=== PATIENT | female | born 1955 | race Caucasian/White ===

== ENCOUNTER 2018-11-21 05:40 | Day surgery (SDC) | payer MEDICAID ==
[2018-11-20 10:17] LABS: BASOPHILS # (AUTO) 0.1 X10'3 (0-0.2); BASOPHILS % (AUTO) 0.6 % (0-1); EOSINOPHILS # (AUTO) 0.2 X10'3 (0-0.9); EOSINOPHILS % (AUTO) 2.5 % (0-6); HEMATOCRIT 36.4 % (35.0-45.0); HEMOGLOBIN 12.2 g/dl (12.0-16.0); LYMPHOCYTES # (AUTO) 2.1 X10'3 (1.1-4.8); LYMPHOCYTES % (AUTO) 26.4 % (21-51); MEAN CORPUSCULAR HEMOGLOBIN 29.6 PG (27.0-31.0); MEAN CORPUSCULAR HGB CONC 33.6 g/dL (33.0-36.5); MEAN CORPUSCULAR VOLUME 88.2 FL (78-98); MEAN PLATELET VOLUME 7.8 FL (7.4-10.4); MONOCYTES # (AUTO) 0.8 X10'3 (0-0.9); MONOCYTES % (AUTO) 10.2 % (2-12); NEUTROPHILS # (AUTO) 4.9 X10'3 (1.8-7.7); NEUTROPHILS % (AUTO) 60.3 % (42-75); PLATELET COUNT 368 X10'3 (140-440); RED BLOOD COUNT 4.13 X10'6 (4.20-5.60); RED CELL DISTRIBUTION WIDTH 14.5 % (11.5-14.5); WHITE BLOOD COUNT 8.1 X10'3 (4.5-11.0)
[2018-11-20 10:37] LABS: ALANINE AMINOTRANSFERASE 23 U/L (12-78); ALBUMIN 3.2 G/DL (3.4-5.0); ALBUMIN/GLOBULIN RATIO 0.7 (1.1-1.5); ALKALINE PHOSPHATASE 75 IU/L (46-116); ANION GAP 9 (8-16); ASPARTATE AMINO TRANSFERASE 13 U/L (10-37); BILIRUBIN,TOTAL 0.3 MG/DL (0.1-1.0); BLOOD UREA NITROGEN 22 MG/DL (7-18); BUN/CREATININE RATIO 21.8 (6.6-38.0); CALCIUM 9.6 MG/DL (8.5-10.1); CHLORIDE 104 MMOL/L (99-107); CREATININE 1.01 MG/DL (0.40-0.90); GLUCOSE 124 MG/DL (70-104); POTASSIUM 3.1 MMOL/L (3.5-5.1); SODIUM 143 MMOL/L (135-145); TOTAL CARBON DIOXIDE 30.5 MMOL/L (24-32); TOTAL PROTEIN 7.5 G/DL (6.4-8.2); eGFR 55 ML/MIN
[2018-11-20 10:40] LABS: PARTIAL THROMBOPLASTIN TIME 28 SECONDS (22-32)
[~2018-11-21] VITALS: Ht 167.6 cm; Wt 89.8 kg
[2018-11-21] VITALS (16 sets, daily range): BP systolic 91–125; BP diastolic 54–96
[2018-11-21] MEDS ORDERED: nitroGLYCERIN 0.4mg SUBLingual tab SL PRN (06:10)
[2018-11-21] MEDS ORDERED: LORazepam 0.5 MG tablet PO PRN (06:10)
[2018-11-21] MEDS ORDERED: MESSAGE TO PHARMACY PO ONE (06:10)
[2018-11-21] MEDS ORDERED: dextrose 50%-water 50ml dispensing syringe IV PRN ×2 (06:10)
[2018-11-21] MEDS ORDERED: insulin Lispro (HumaLOG) vial - multi-dose SQ SCH (06:10)
[2018-11-21] MEDS ORDERED: diphenhydrAMINE 25mg capsule PO PRN (06:10)
[2018-11-21] MEDS ORDERED: glucagon, human recombinant 1mg kit SUBCUT PRN (06:10)
[2018-11-21] MEDS ORDERED: normal saline 1,000 ML IV SCH (06:10)
[2018-11-21] MEDS ORDERED: dextrose ORAL solution 15 GM/59 ML bottle PO PRN ×2 (06:10)
[2018-11-21] MEDS ORDERED: OMEP40CA13 PO (06:30)
[2018-11-21] MEDS ORDERED: METF-438 PO (06:30)
[2018-11-21] MEDS ORDERED: CINNAMON PO (06:30)
[2018-11-21] MEDS ORDERED: FLAX SEED OIL PO (06:30)
[2018-11-21] MEDS ORDERED: OMEG-15 PO (06:30)
[2018-11-21] MEDS ORDERED: TRIA1CAP6 PO (06:30)
[2018-11-21] MEDS ORDERED: ASPI-611 PO (06:30)
[2018-11-21] MEDS ORDERED: GLIP2.5T3 PO (06:30)
[2018-11-21] MEDS ORDERED: FENUGREEK PO (06:30)
[2018-11-21] MEDS ORDERED: BENADRYL (06:30)
[2018-11-21] MEDS ORDERED: MULT-1085 PO (06:30)
[2018-11-21] MEDS ORDERED: GRAPE SEED PO (06:30)
[2018-11-21] MEDS ORDERED: CAL MAG ZINC PO (06:30)
[2018-11-21] MEDS ORDERED: iohexol 350MG/ML 100ml bottle IV ONE (08:30)
[2018-11-21] MEDS ORDERED: fentaNYL/PF 50MCG/1 ML 2ML syringe ONE (08:30)
[2018-11-21] MEDS ORDERED: LIDOcaine 1% (10mg/ml)w/preservative injection 20ml MDV ONE (08:30)
[2018-11-21] MEDS ORDERED: iohexol 350 MG/ML 50ML vial IV ONE (08:30)
[2018-11-21] MEDS ORDERED: midazolam 2 mg/2 ml injection ONE (08:30)
[2018-11-21] MEDS ORDERED: HYDROcodone/acetaminophen 5mg/325mg tablet PO PRN (10:05)
[2018-11-21] MEDS ORDERED: OXAZEpam 15mg capsule PO PRN (10:05)
[2018-11-21] MEDS ORDERED: ondansetron/PF 4mg/2ml inj IV PRN (10:05)
[2018-11-21] MEDS ORDERED: proCHLORperazine 10 MG/2 ml inj IV PRN (10:05)
[2018-11-21] MEDS ORDERED: acetaminophen 325mg tablet PO PRN (10:05)
[2018-11-21] MEDS ORDERED: normal saline 1000ml 1,000 ML IV SCH (10:05)
[2018-11-21] MEDS ORDERED: HYDROcodone/acetaminophen 10/325mg tab PO PRN (10:05)
[2018-11-21 15:10] LABS: ISTAT Hct MIX 33 %PCV (35-48); ISTAT O2 SATURATION MIX VENOUS 77 % (60-80); ISTAT SOURCE MIX
[2018-11-21 15:10] LABS: ISTAT HGB ART 10.9 g/dl (12.0-16.0); ISTAT Hct ART 32 %PCV (35-48); ISTAT O2 SATURATION ARTERIAL 95 % (95-98); ISTAT SOURCE ART
--- NOTE | 2018-11-21 15:56 | NUR ---
Problems reprioritized. Patient report given, questions answered & plan of care reviewed with TOMASZ VALENTIN.
[2018-11-21] MEDS ORDERED: insulin glargine (Lantus) pen - multi-dose SQ SCH (21:00)
== END 2018-11-21 17:45 | disposition home or self-care (01) ==
LOC: SSTAY O 05:40
PROVIDERS: ATTEND Internal Medicine Cardiovascular Disease
DX: I25.10 Atherosclerotic heart disease of native coronary artery without angina pectoris (principal); I10 Essential (primary) hypertension; E11.9 Type 2 diabetes mellitus without complications; K21.9 Gastro-esophageal reflux disease without esophagitis; E78.5 Hyperlipidemia, unspecified; Z87.891 Personal history of nicotine dependence; Z88.2 Allergy status to sulfonamides; Z88.5 Allergy status to narcotic agent; Z79.01 Long term (current) use of anticoagulants; Z79.899 Other long term (current) drug therapy
CPT/HCPCS: 36415; 71046; 80053; 82803; 82948; 85014; 85025; 85610; 85730; 93005; 93460; 99152; 99153; C1769; J1644; J2001; J2250; J3010; J7030; Q0163; Q9967; A4620; A6258; C1760

== ENCOUNTER 2021-04-10 11:17 | Emergency (ER) | payer MEDICAID ==
[~2021-04-10] VITALS: Ht 167.6 cm; Wt 90.0 kg
[~2021-04-10 11:17] MED LIST: ASPI-611 PO; BENADRYL; CAL MAG ZINC PO; CINNAMON PO; FENUGREEK PO; FLAX SEED OIL PO; GLIP2.5T3 PO; GRAPE SEED PO; METF-438 PO; MULT-1085 PO; OMEG-15 PO; OMEP40CA21 PO; TRIA1CAP6 PO
[2021-04-10 11:28] VITALS: BP 151/77
== END 2021-04-10 18:41 | disposition left against medical advice (07) ==
LOC: ER 11:17
DX: S20.219A Contusion of unspecified front wall of thorax, initial encounter (principal); Z53.21 Procedure and treatment not carried out due to patient leaving prior to being seen by health care provider; X58.XXXA Exposure to other specified factors, initial encounter; Y93.89 Activity, other specified; Y92.89 Other specified places as the place of occurrence of the external cause; Y99.8 Other external cause status